=== PATIENT | female | born 1950 | race Caucasian/White ===

== ENCOUNTER 2022-10-13 15:50 | Emergency (ER) | payer MEDICARE, OTHER ==
[~2022-10-13] VITALS: Ht 162.6 cm; Wt 58.1 kg
[2022-10-13 18:11] VITALS: BP 165/62; PULSE 86; RESP 18; TEMP 97.9; O2SAT 95
[2022-10-13] MEDS ORDERED: TETANUS-DIPTH-ACEL PERTUSSIS 0.5ML SYR Tdap IM ONE (19:30)
[2022-10-13] MEDS ORDERED: AUG875T PO (19:58)
[2022-10-13] MEDS ORDERED: MUPI2OIN2 EX (19:58)
[2022-10-13] MEDS: AMPICILLIN & SULBACTAM SODIUM 3 GM in SODIUM CHL 0.9% 100 ML IV SCH ×2 (21:07→22:39)
== END 2022-10-13 22:50 | disposition home or self-care (01) ==
LOC: ER 15:50
DX: S81.011A Laceration without foreign body, right knee, initial encounter (principal); I10 Essential (primary) hypertension; F17.210 Nicotine dependence, cigarettes, uncomplicated; E78.5 Hyperlipidemia, unspecified; W54.0XXA Bitten by dog, initial encounter; Y93.89 Activity, other specified; Y92.89 Other specified places as the place of occurrence of the external cause; Y99.8 Other external cause status
CPT/HCPCS: 90471; 90715

== ENCOUNTER 2022-10-14 09:18 | Emergency (ER) | payer MEDICARE ==
[~2022-10-14] VITALS: Ht 162.6 cm; Wt 59.3 kg
[~2022-10-14 09:18] MED LIST: AUG875T PO; MUPI2OIN2 EX
[2022-10-14 09:29] VITALS: BP 169/67; PULSE 66; RESP 18; TEMP 97.4; O2SAT 98
[2022-10-14] MEDS ORDERED: NEOMYCIN-BACITRACIN-POLYM UNITDOSE PKG TOP OINT TOP ONE (11:30)
== END 2022-10-14 12:20 | disposition home or self-care (01) ==
LOC: ER 09:18
DX: S81.011D Laceration without foreign body, right knee, subsequent encounter (principal); I10 Essential (primary) hypertension; E78.5 Hyperlipidemia, unspecified; F17.210 Nicotine dependence, cigarettes, uncomplicated; X58.XXXD Exposure to other specified factors, subsequent encounter